=== PATIENT | female | born 1970 | race American Indian/Alaskan Native ===

== ENCOUNTER 2021-11-04 10:17 | Observation (INO) | payer OTHER ==
--- NOTE | 2021-11-04 11:43 | Emergency Department Report ---
ED General Adult HPI - General Chief complaint: Dyspnea/Respdistress Stated complaint: SHAYNA/VERY WEAK Time Seen by Provider: 11/04/21 11:00 Source: patient Mode of arrival: Ambulatory Limitations: No Limitations - History of Present Illness Initial comments: Patient presents with shortness of breath and generalized weakness. This has been going on for 2 to 3 days. She describes orthopnea in addition. Patient states that she cannot walk or do anything exertional without becoming winded. She feels weak, like she is going to collapse. The last time this happened she was anemic and required a blood transfusion. She has had very heavy menstrual cycles. She had talked to her offal roller about a hysterectomy because she has become anemic before secondary to her menstrual cycles. Apparently her insurance would not pay for it so it was never done. Patient states that she currently has different insurance and is hoping that this will cover the hysterectomy. Regardless, she is here today because she feels weak and short of breath. She is not having chest pain. There is no fever. There is no unilateral weakness. - Related Data Allergies Allergy/AdvReac Type Severity Reaction Status Date / Time No Known Allergies Allergy Verified 11/04/21 10:41 ED Review of Systems ROS: Stated complaint: SHAYNA/VERY WEAK Other details as noted in HPI Comment: All other systems reviewed and negative Constitutional: denies: fever Eyes: denies: vision change ENT: denies: throat pain Respiratory: denies: cough Cardiovascular: denies: chest pain Endocrine: denies: unexplained weight loss Gastrointestinal: denies: abdominal pain Genitourinary: as per HPI Musculoskeletal: denies: back pain Skin: denies: rash Neurological: denies: headache Hematological/Lymphatic: denies: easy bruising ED Past Medical Hx - Past Medical History Previous Medical History?: Yes Additional medical history: anemia - Family History Family history: no significant ED Physical Exam - General Limitations: No Limitations, Other (Pulse ox noted and normal) General appearance: alert, in no apparent distress - Head Head exam: Present: atraumatic, normocephalic - Eye Eye exam: Present: normal appearance, PERRL, EOMI, other (Pale conjunctive). Absent: scleral icterus - ENT ENT exam: Present: normal orophraynx, normal external ear exam - Neck Neck exam: Present: normal inspection. Absent: meningismus - Respiratory Respiratory exam: Present: normal lung sounds bilaterally. Absent: respiratory distress - Cardiovascular Cardiovascular Exam: Present: regular rate, normal rhythm, tachycardia - GI/Abdominal GI/Abdominal exam: Present: soft. Absent: tenderness - Extremities Exam Extremities exam: Present: normal capillary refill - Back Exam Back exam: Absent: CVA tenderness (R), CVA tenderness (L) - Neurological Exam Neurological exam: Present: alert, oriented X3, CN II-XII intact. Absent: motor sensory deficit - Psychiatric Psychiatric exam: Present: normal affect, normal mood - Skin Skin exam: Present: warm, dry ED Course Vital Signs 11/04/21 11/04/21 10:38 13:31 Temperature 98.5 F Pulse Rate 103 H Respiratory 20 Rate Blood Pressure 135/86 O2 Sat by Pulse 100 99 Oximetry - Reevaluation(s) Reevaluation #1: 11/04/21 12:04 Labs have been ordered. Old records reviewed. At this time, EKG has been reviewed. Reevaluation #2: 11/04/21 13:39 Labs have been noted. Patient was amenable to transfusion. We will proceed with admission. Case has been discussed with SOLAR SALES ADVISOR on-call. ED Medical Decision Making - Lab Data Result diagrams: 11/04/21 11:50 11/04/21 11:50 - EKG Data When compared to previous EKG there are: previous EKG unavailable 11/04/21 12:04 1148-EKG shows normal sinus rhythm at 98. Intervals are normal including a QRS of 105 and a QT corrected of 465. Patient has artifact noted. There is no ST elevation suggestive of STEMI. There is diffuse generalized T wave flattening. Patient has good R wave progression. There is no ST depression suggestive of ischemia. 11/04/21 12:05 - Medical Decision Making Patient presents with symptomatic anemia related to heavy menses. She will require transfusion. There was no evidence of pulmonary edema. She does not appear to be toxic. Patient does not have any other electrolyte derangement that would account for her generalized weakness. She has agreed to transfusion. Critical Care Time: Yes (45 minutes exclusive of all procedures) Critical care attestation.: If time is entered above; I have spent that time in minutes in the direct care of this critically ill patient, excluding procedure time. ED Disposition Clinical Impression: Acute blood loss anemia, Generalized weakness Menorrhagia Qualifiers: Menorrhagia type: with regular cycle Qualified Code(s): N92.0 - Excessive and frequent menstruation with regular cycle Disposition: 09 ADMITTED INPATIENT Is pt being admited?: Yes Condition: Stable Referrals: PRIMARY CARE, [Referring] - 3-5 Days
--- NOTE | 2021-11-04 11:48 | XRay Report ---
CHEST 2 VIEWS INDICATION / CLINICAL INFORMATION: Orthopnea. COMPARISON: None available. FINDINGS: SUPPORT DEVICES: None. HEART / MEDIASTINUM: There is mild cardiomegaly. Pulmonary vasculature is normal. LUNGS / PLEURA: There is minimal patchy parenchymal opacity in the right upper lung laterally overlyi ng the second anterior interspace. The left lung is clear. There is no evidence of pleural effusion o r adenopathy. No pneumothorax. ADDITIONAL FINDINGS: No significant additional findings. IMPRESSION: 1. Mild cardiomegaly. 2. Minimal patchy nonspecific parenchymal disease in the right upper lobe. Signer Name: Jordi Díaz MD Signed: 11/04/2021 11:44 AM Workstation Name: [id number]
[2021-11-04 12:26] LABS: Mean Corpuscular HGB Conc 28 % (30-34); Platelet Count 457 K/mm3 (140-440)
[2021-11-04 12:27] LABS: Blood Urea Nitrogen 10 mg/dL (7-17); Calcium 9.1 mg/dL (8.4-10.2); Hemolysis Index 0
[2021-11-04 12:42] LABS: BUN/Creatinine Ratio 20
[2021-11-04 12:44] LABS: Hematocrit 18.2 % (30.3-42.9); Hemoglobin 5.2 gm/dl (10.1-14.3); Mean Corpuscular Volume 54 fl (79-97)
[2021-11-04] MEDS ORDERED: SODIUM CHLORIDE 0.9% 500 ML 500 ML IV ONE (12:54)
[2021-11-04] MEDS ORDERED: SODIUM CHLORIDE 0.9% 1000 ML 1,000 ML ONE (13:01)
[2021-11-04] MEDS ORDERED: ONDANSETRON 4 MG/2 ML INJ IV PRN (15:19)
[2021-11-04] MEDS ORDERED: oxyCODONE /ACETAMINOPHEN 5-325MG TAB PO PRN (15:19)
[2021-11-04] MEDS ORDERED: IBUPROFEN 600 MG TAB PO PRN (15:19)
[2021-11-04] MEDS ORDERED: ACETAMINOPHEN 325 MG TAB PO PRN (15:19)
--- NOTE | 2021-11-04 17:15 | Ultrasound Report ---
ULTRASOUND PELVIS INDICATION / CLINICAL INFORMATION: HEAVY MENSES. TECHNIQUE: Transabdominal and Transvaginal. Duplex Color Doppler used: Yes. COMPARISON: None available FINDINGS: UTERUS: The uterus measures 11 cm in length. Endometrial stripe measures 11 mm. The endometrium appea rs irregular possibly containing polyps. RIGHT ADNEXA: No significant ovarian cyst or mass. Normal color Doppler blood flow. LEFT ADNEXA: No significant ovarian cyst or mass. Normal color Doppler blood flow. URINARY BLADDER: No significant abnormality. FREE FLUID: None. ADDITIONAL FINDINGS: None. IMPRESSION: 1. The endometrium measures 11 mm. The endometrium appears nodular. This may represent polyps. Possib ility of neoplastic etiology is included in the differential diagnosis. Signer Name: Juwan Bell MD Signed: 11/04/2021 5:11 PM Workstation Name: [id number]
--- NOTE | 2021-11-04 17:21 | History and Physical Report ---
History of Present Illness Date of examination: 11/04/21 Date of admission: 11/04/21 15:20 Chief complaint: shortness of breath History of present illness: Patient is a 51 yo presenting with symptomatic anemia. Notes over the last 2-3 days she has been experiencing shortness of breath and fatigue. Has had this happen before after menses so came to the ED for evaluation. Has a history of 7 transfusions due to similar symptoms in the past, last 5 months ago. Patient notes a history of heavy menses, but notes it has worsened over the last 6-12 months. States that she uses 2 overnight pads and has to change them every hour. Notes associated dysmenorrhea. States she is currently not bleeding. Patient states she has not recently been seen by a KEG HEADER as she just moved here from [place]. Notes in the past she was told she needed a hysterectomy, but was unable to have it done as she had no insurance. Past History Past Medical History: no pertinent history Past Surgical History: other (BTL) Family/Genetic History: none Social history: no significant social history - Obstetrical History : 6 Para: 6 Medications and Allergies Allergies Allergy/AdvReac Type Severity Reaction Status Date / Time No Known Allergies Allergy Verified 11/04/21 10:41 Active Meds: Active Medications Acetaminophen (Acetaminophen 325 Mg Tab) 650 mg PO Q4H PRN PRN Reason: Pain MILD(1-3)/Fever >100.5/ART Ibuprofen (Ibuprofen 600 Mg Tab) 600 mg PO Q6H PRN PRN Reason: Pain, Mild (1-3) Ondansetron HCl (Ondansetron 4 Mg/2 Ml Inj) 4 mg IV Q8H PRN PRN Reason: Nausea And Vomiting Oxycodone/Acetaminophen (Oxycodone /Acetaminophen 5-325mg Tab) 1 tab PO Q6H PRN PRN Reason: Pain, Moderate (4-6) Sodium Chloride (Sodium Chloride 0.9% 10 Ml Flush Syringe) 10 ml IV BID JANKI Sodium Chloride (Sodium Chloride 0.9% 10 Ml Flush Syringe) 10 ml IV PRN PRN PRN Reason: LINE FLUSH Review of Systems Constitutional: fatigue, weakness Cardiovascular: palpitations, lightheadedness, shortness of breath Gastrointestinal: nausea - Vital Signs Vital signs: Vital Signs BP 139/85 11/04/21 07:44 Temp Pulse Resp BP Pulse Ox 98.5 F 88 17 105/65 95 11/04/21 10:38 11/04/21 15:31 11/04/21 15:31 11/04/21 16:42 11/04/21 16:42 - Physical Exam Abdomen: Positive: normal appearance, soft Genitourinary (Female): Positive: normal external genitalia, normal perenium Vagina: Positive: normal moisture Uterus: Positive: other (approx 12 week sized, mobile, nontender) Results Result Diagrams: 11/04/21 11:50 11/04/21 11:50 Abnormal lab results 11/04/21 11/04/21 11/04/21 Range/Units 11:50 11:50 13:30 RBC 3.40 L (3.65-5.03) M/mm3 Hgb 5.2 L* (10.1-14.3) gm/dl Hct 18.2 L* (30.3-42.9) % MCV 54 L (79-97) fl MCH 15 L (28-32) pg MCHC 28 L (30-34) % RDW 22.0 H (13.2-15.2) % Plt Count 457 H (140-440) K/mm3 Creatinine 0.5 L (0.6-1.2) mg/dL Glucose 101 H (65-100) mg/dL Crossmatch See Detail All other labs normal. Assessment and Plan Patient admitted for symptomatic anemia with hemoglobin of 5.2 Transfuse 2 units PRBCs Pelvic sono ordered and completed. 11 cm uterus with 11 mm nodular endometrium, possible polyps. Will follow up for further workup of HMB in the outpatient setting. - Patient Problems (1) Menorrhagia Current Visit: Yes Status: Acute Qualifiers: Menorrhagia type: with regular cycle Qualified Code(s): N92.0 - Excessive and frequent menstruation with regular cycle (2) Acute on chronic blood loss anemia Current Visit: Yes Status: Acute
[2021-11-04] MEDS ORDERED: SODIUM CHLORIDE 0.9% 1000 ML 500 ML IV ONE (20:30)
--- NOTE | 2021-11-05 09:29 | Electrocardiograph Report ---
[facility] Test Date: 2021-11-04 Test Time: 11:48:22 Pat Name: MADDI BEGUM Department: Room: 2104 Gender: F Machinist Wood: KARTIK : 1970 Requested By: GARRETT SANTANA Order Number: [id number] Reading MD: Nora Sharp Measurements Intervals Clifford Rate: 98 P: 65 [place]: 190 QRS: -11 QRSD: 105 T: 43 QT: 364 QTc: 465 Interpretive Statements Sinus rhythm No previous ECG available for comparison Electronically Signed On 11-05-2021 9:28:26 EST by Nora Sharp
[2021-11-05 10:20] LABS: Hematocrit 27.3 % (30.3-42.9); Hemoglobin 8.6 gm/dl (10.1-14.3)
--- NOTE | 2021-11-05 10:57 | Discharge Summary ---
Providers - Providers Date of Admission: 11/04/21 15:20 Date of discharge: 11/05/21 Attending physician: MONET AGUILERA MD Primary care physician: JAVAN HERNANDES Hospitalization Condition: Good Hospital course: 51 yo admitted for symptomatic anemia. Hgb 5.2. Received 2 unit of PRBCs. Hgb up to 8.6. Patient doing well and vitals stable. To follow up for further management. Disposition: 01 HOME / SELF CARE / HOMELESS Final Discharge Diagnosis (Prints w/discharge instructions): Symptomatic anemia - Discharge Diagnoses (1) Menorrhagia Status: Acute Qualifiers: Menorrhagia type: with regular cycle Qualified Code(s): N92.0 - Excessive and frequent menstruation with regular cycle (2) Acute on chronic blood loss anemia Status: Acute Core Measure Documentation - Palliative Care Palliative Care/ Comfort Measures: Palliative Care/Comfort Measures - Core Measures Any of the following diagnoses?: none Exam - Constitutional Vitals: Temp Pulse Resp BP Pulse Ox 97.9 F 84 18 113/78 98 11/05/21 07:29 11/05/21 07:29 11/05/21 07:29 11/05/21 07:29 11/05/21 08:00 General appearance: Present: no acute distress - Respiratory Respiratory effort: normal Plan Activity: no restrictions Weight Bearing Status: Full Weight Bearing Diet: regular Care Plan Goals: [] Smoking cessation referral if applicable(refer to patient education folder for contact #) [] Refer to [facility]'s [facility] Booklet Call your doctor immediately for: * Fever > 100.5 * Heavy vaginal bleeding ( >1 pad per hour) * Severe persistent headache * Shortness of breath . Follow up with: MONET AGUILERA MD [Staff Physician] - 7 Days Prescriptions: Docusate Sodium [Colace] 100 mg PO BID #60 capsule Ferrous Sulfate [Feosol 325 MG tab] 325 mg PO BID #60 tablet
[2021-11-05 14:12] VITALS: BP 135/78
== END 2021-11-05 12:05 | disposition home or self-care (01) ==
LOC: ED 10:17 → OB 15:20
PROVIDERS: ADMIT Student in an Organized Health Care Education/Training Program; ATTEND Student in an Organized Health Care Education/Training Program
DX: N92.0 Excessive and frequent menstruation with regular cycle (principal); Z20.822 Contact with and (suspected) exposure to COVID-19; R53.1 Weakness; D62 Acute posthemorrhagic anemia; Z98.51 Tubal ligation status
CPT/HCPCS: 36415; 36430; 71046; 76830; 76856; 80048; 84484; 85014; 85018; 85027; 86850; 86900; 86901; 86920; 93005; 93010; 99291; G0378; J7030; P9016; U0003; Q0162